=== PATIENT | female | born 1980 | race Caucasian/White ===

== ENCOUNTER 2019-08-06 11:49 | Emergency (ER) | payer SELFPAY ==
--- NOTE | 2019-08-06 12:16 | Emergency Department Record ---
History of Present Illness - General Chief complaint: Female Urogenital Problem Stated complaint: VAGINAL PAIN Time Seen by Provider: 08/06/19 12:00 Source: Patient Mode of Arrival: Ambulatory Limitations: No limitations - History of Present Illness Initial comments: The patient is here due to vaginal pain for 12-13 hours. She states she feels a lump and a grape size area of swelling over her vagina and it hurts to sit. She denies any vaginal discharge, dysuria, bleeding, fever, AP or back pain. MD Complaint: Pelvic pain Onset/Timin -: Days(s) Improves with: Other Worsens with: Other - Related Data Previous Rx's Medication Instructions Recorded Naproxen [Naprosyn] 500 mg PO BID #14 tablet. 08/06/19 Allergies Allergy/AdvReac Type Severity Reaction Status Date / Time No Known Drug Allergies Allergy Verified 08/06/19 11:59 Travel Screening - Travel/Exposure Within Last 30 Days Have you traveled within the last 30 days?: No - Travel/Exposure Within Last Year Have you traveled outside the [place] in the last year?: No - Additonal Travel Details Have you been exposed to anyone with a communicable illness?: No - Travel Symptoms Symptom Screening: None Review of Systems Constitutional: Denies: Chills, Fever Eyes: Denies: Eye discharge ENT: Denies: Congestion Respiratory: Denies: Cough Past Medical History - SOCIAL HISTORY Smoking Status: Current every day smoker Alcohol Use: None Drug Use: None - RESPIRATORY Hx Respiratory Disorders: No - CARDIOVASCULAR Hx Cardio Disorders: No - NEURO Hx Neuro Disorders: No - GI Hx GI Disorders: No - Hx Genitourinary Disorders: No - ENDOCRINE Hx Endocrine Disorders: No - MUSCULOSKELETAL Hx Musculoskeletal Disorders: No - PSYCH Hx Psych Problems: No - HEMATOLOGY/ONCOLOGY Hx Hematology/Oncology Disorders: No Family Medical History Any Significant Family History?: No Physical Exam - General General Appearance: Alert, Cooperative, No acute distress - Head Head exam: Atraumatic - Eye Eye exam: Normal appearance - Neck Neck exam: Normal inspection, Full ROM. negative: Tenderness - Respiratory Respiratory exam: Normal lung sounds bilaterally. negative: Respiratory distress - Cardiovascular Cardiovascular Exam: Regular rate, Normal rhythm, Normal heart sounds - GI/Abdominal GI/Abdominal exam: Soft, Normal bowel sounds. negative: Rebound, Rigid, Tenderness (The abdomen is very soft and nontender in all 4 quads.) - Extremities Extremities exam: Normal inspection, Full ROM, Normal capillary refill. negative: Tenderness Course Vital Signs 08/06/19 11:51 Temperature 98.4 F Pulse Rate 102 H Respiratory 18 Rate Blood Pressure 150/95 Pulse Ox 98 - Reevaluation(s) Reevaluation #1: The patient is resting comfortably at this time. I did discuss the case with Dr. Arndt ([facility]) and she believes the cause could be a Cystoceole and is willing to see the patient in the office. The US does demonstrate a possible Bartholin's gland cyst which would be very large based on the size. Due to the confusing nature of this condition I clearly did recommend transfer to a larger ER for a [facility] consultation. The patient is reluctant to follow that plan and would like to see her PCP in the office or Dr. Arndt as an outpatient. I did again discuss the clear fact that I would like to transfer the patient to another ER for consultation but again the patient is refusing that plan. She understands the risks of not following my instructions and accepts the risks of not going for an urgent [facility] consultation which could include worsening pain, infection, and the need for a operation. 08/06/19 15:10 Medical Decision Making - Data Complexity MDM Data: Labs Ordered and/or Reviewed, X-Ray Ordered and/or Reviewed - Radiology Data Radiology results: Report reviewed (US: Normal uterus and ovaries. IUD in place. Complex cyst R vaginal wall near introitus measuring 2.2x1.8x2.8 cm's. Prob Bartholin's gland cyst per Rad.) Disposition Disposition: Discharge Clinical Impression: Vaginal wall cyst Disposition: Against Medical Advice Condition: (2) Stable Instructions: Cystocele (ED) Additional Instructions: Please use Naprosyn for pain and please proceed to a larger ER for a [facility] evaluation. If you choose to not go to the ER please see your family doctor ARABELLA or the [facility] doctors in the Family Practice building with Dr. Arndt. Prescriptions: Naproxen [Naprosyn] 500 mg PO BID #14 tablet. Referrals: LANE ARNDT [MEDICAL DOCTOR] - Forms: Patient Portal Access Time of Disposition: 15:10 Quality - Quality Measures Quality Measures: N/A - Blood Pressure Screening View Details: Yes Does Patient Have Any of the Following: No Blood Pressure Classification: Hypertensive Reading Systolic Measurement: 150 Diastolic Measurement: 95 Screening for High Blood Pressure: < First Hypertensive BP, F/U Documented > [G8950] First Hypertensive Follow-up Interventions: Referral to alternative/primary care provider.
[2019-08-06 12:33] LABS: URINE APPEARANCE CLEAR; URINE BILIRUBIN NEGATIVE (NEGATIVE); URINE BLOOD NEGATIVE (NEGATIVE); URINE COLOR YELLOW; URINE GLUCOSE (UA) NEGATIVE (NEGATIVE); URINE KETONE NEGATIVE (NEGATIVE); URINE LEUKOCYTE ESTERASE NEGATIVE (NEGATIVE); URINE NITRITE NEGATIVE (NEGATIVE); URINE PROTEIN NEGATIVE (NEGATIVE); URINE UROBILINOGEN 0.2 E.U./dL (0.20 - 1.00)
[2019-08-06 12:35] LABS: HCG,QUALITATIVE URINE NEGATIVE (NEGATIVE)
--- NOTE | 2019-08-07 18:53 | ULTRASOUND REPORT ---
EXAM: ULTRASOUND PELVIC W TRANSVAG (NON-OB) HISTORY: VAGINAL PAIN. PATIENT STATES SHE CAN SEE A LUMP PROTRUDING FROM VAGINA. TECHNIQUE: Transabdominal ultrasound examination of the pelvis is performed. Transvaginal scanning is also performed for further evaluation of the uterus and adnexa. COMPARISON: None. FINDINGS: TRANSABDOMINAL FINDINGS: The uterus is normal in position and smoothly marginated. It measures 7.9 x 4.5 x 5.7 cm. No myometrial mass is identified. The endometrial thickness is estimated at 3.8 mm. There is a linear echogenic structure within the endometrial canal extending from the level of the fundus distally consistent with intrauterine contraceptive device. This appears satisfactory in position. The right ovary is visualized and normal in size measuring 1.3 x 2.5 x 1.7 cm. There is a dominant follicle within the right ovary measuring 13 mm in diameter. Blood flow is suggested within the right ovary with color Doppler and duplex Doppler evaluation. Spectral analysis demonstrates a venous waveform within the right ovary. The left ovary is visualized and normal in size measuring 3.6 x 1.2 x 2.4 cm. Blood flow is demonstrated within the left ovary with color Doppler and duplex Doppler evaluation. Spectral analysis demonstrates venous and arterial waveforms within the left ovary. No adnexal mass nor free pelvic fluid. TRANSVAGINAL FINDINGS: There is a complex cystic mass involving the right lateral wall of the vagina near the introitus measuring 2.2 x 1.8 x 2.7 cm. This is nonspecific. A Bartholin's gland cyst would be the most likely etiology. The uterus is normal in position and size. No myometrial mass. There is again noted a linear echogenic structure with posterior shadowing within the endometrial canal extending from the fundus distally consistent with a satisfactorily positioned intrauterine contraceptive device. The endometrium thickness of 4 mm is within the limits of normal. The right ovary is visualized and normal in size measuring 2.9 x 3.2 x 2.2 cm. A dominant follicle is noted within the right ovary measuring 1.5 cm in diameter. Blood flow is present within the right ovary with color Doppler and duplex Doppler evaluation. Spectral analysis demonstrates venous and arterial waveforms within the right ovary. The left ovary is visualized and normal in size measuring 4.0 x 1.5 x 2.3 cm. A dominant follicle is present within the left ovary measuring 11 mm in diameter. Blood flow is demonstrated within the left ovary with color Doppler and duplex Doppler evaluation. Spectral analysis demonstrates venous and arterial waveforms within the left ovary. IMPRESSION: 1. NORMAL SONOGRAPHIC APPEARANCE OF THE UTERUS. INTRAUTERINE CONTRACEPTIVE DEVICE IN PLACE APPEARING SATISFACTORY IN POSITION. 2. NORMAL-APPEARING OVARIES WITH DOMINANT FOLLICLES IN EACH, DESCRIBED ABOVE. 3. COMPLEX CYSTIC MASS WITHIN THE RIGHT WALL OF THE VAGINA NEAR THE INTROITUS MEASURING 2.2 X 1.8 X 2.7 CM. THIS IS NONSPECIFIC, THOUGH A BARTHOLIN'S GLAND CYST IS THE MOST LIKELY ETIOLOGY. SUPERIMPOSED INFECTION CANNOT BE EXCLUDED. JOB NUMBER: [id number] [facility]
== END 2019-08-06 15:20 | disposition left against medical advice (07) ==
LOC: ER 11:49
DX: N89.8 Other specified noninflammatory disorders of vagina (principal); R10.2 Pelvic and perineal pain; F17.210 Nicotine dependence, cigarettes, uncomplicated
CPT/HCPCS: 76830; 76856; 81003; 81025; 99284